=== PATIENT | male | born 1975 | race Hispanic/Latino ===

== ENCOUNTER 2017-03-03 17:55 | Emergency (ER) | payer MEDICAID ==
[2017-03-03 18:28] VITALS: RESP 18
--- NOTE | 2017-03-03 19:28 | C.PDOC ---
History Of Present Illness Manav Walton is a 41 year old male, with a past medical history of asthma and seizures, who presents to the emergency department complaining of right wrist injury associated with swelling and pain onset since today. Patient reports he fell while rollerblading. He denies any fever, chills, nausea, vomit, or abdominal pain. No further medical complaints. PMD: None provided. Time Seen by Provider: 03/03/17 18:27 Chief Complaint (Nursing): Upper Extremity Problem/Injury History Per: Patient History/Exam Limitations: no limitations Onset/Duration Of Symptoms: Days (1) Current Symptoms Are (Timing): Still Present Severity: Mild Past Medical History Reviewed: Historical Data, Nursing Documentation, Vital Signs Vital Signs: Last Vital Signs Temp 98.1 F 03/03/17 19:32 Pulse 89 03/03/17 19:32 Resp 18 03/03/17 19:32 BP 138/90 03/03/17 19:32 Pulse Ox 98 03/03/17 19:49 - Medical History PMH: Asthma, Seizures ("LAST WAS FEW YEARS AGO") Family History: States: Unknown Family Hx - Social History Hx Tobacco Use: Yes (2PPD) Hx Alcohol Use: No Hx Substance Use: No (DENIED) - Immunization History Hx Tetanus Toxoid Vaccination: No Review Of Systems Except As Marked, All Systems Reviewed And Found Negative. Constitutional: Negative for: Fever, Chills Gastrointestinal: Negative for: Nausea, Vomiting, Abdominal Pain Musculoskeletal: Positive for: Hand Pain (right wrist, noted swelling) Physical Exam - Physical Exam Appears: Well, Non-toxic, No Acute Distress Skin: Normal Color, Warm, Dry Head: Atraumatic, Normacephalic Eye(s): bilateral: PERRL Nose: Normal Neck: Normal Cardiovascular: Rhythm Regular, No Murmur Respiratory: Normal Breath Sounds Gastrointestinal/Abdominal: Normal Exam Extremity: Swelling (movable soft tissue swelling on dorsal and radial area of right wrist, consistent with ganglion cyst.) Neurological/Psych: Oriented x3, Normal Speech, Normal Cognition ED Course And Treatment O2 Sat by Pulse Oximetry: 98 (RA) Pulse Ox Interpretation: Normal - Other Rad right wrist xray X-Ray: Viewed By Me, Read By Radiologist Interpretation: PROCEDURE: Right Wrist Radiographs. . HISTORY: fall. COMPARISON: None. FINDINGS: BONES: Normal. No fracture. JOINTS: Normal. No dislocation. SOFT TISSUES: Normal. OTHER FINDINGS: None. IMPRESSION: No evidence of acute fracture or dislocation. Medical Decision Making Medical Decision Making: Initial Plan: --wrist, right 3 views [RAD] --reevaluation Volar short arm splint was applied by CP and checked by me. -X-ray negative. Patient will be discharged home. Scribe Attestation The documentation for this encounter was entered by Jez Auguste acting as a scribe for Natali GARCES All medical record entries made by the Scribe were at my direction and personally dictated by me. I have reviewed the chart and agree that the record accurately reflects my personal performance of the history, physical exam, medical decision making, and the department course for this patient. I have also personally directed, reviewed, and agree with the discharge instructions and disposition. Disposition - Disposition Referrals: Vicente Plunkett MD [Staff Provider] - Disposition: HOME/ ROUTINE Disposition Time: 19:25 Condition: STABLE Additional Instructions: Follow up with PMD and Hand specialist within 1-2 days. Return to [facility] if feel worse. Prescriptions: Ibuprofen [Motrin Tab] 600 mg PO Q8 #30 tab Instructions: Ganglion Cysts (ED), Wrist Sprain (ED) Forms: [employer] (Italian) - Clinical Impression Clinical Impression: Wrist sprain, Ganglion cyst
[2017-03-03 19:34] VITALS: BP 138/90; PULSE 89; TEMP 98.1
[2017-03-03 19:44] VITALS: O2SAT 98
--- NOTE | 2017-03-04 08:44 | RAD ---
PROCEDURE: Right Wrist Radiographs. HISTORY: fall COMPARISON: None. FINDINGS: BONES: Normal. No fracture. JOINTS: Normal. No dislocation. SOFT TISSUES: Normal. OTHER FINDINGS: None. IMPRESSION: No evidence of acute fracture or dislocation.
== END 2017-03-03 19:53 | disposition home or self-care (01) ==
LOC: C.ER 17:55
DX: S63.501A Unspecified sprain of right wrist, initial encounter (principal); W18.39XA Other fall on same level, initial encounter; Y93.51 Activity, roller skating (inline) and skateboarding; Y92.89 Other specified places as the place of occurrence of the external cause; M67.431 Ganglion, right wrist